=== PATIENT | male | born 1955 | race Caucasian/White ===

== ENCOUNTER → 2019-05-18 | Outpatient (CLI) | payer BC ==
--- NOTE | 2019-05-18 11:44 | REP ---
Chest x-ray: Two views. History: Fever and adult . Comparison study: No comparison study . Findings: The lungs are well inflated and free of infiltrate. The pleural angles are sharp. The heart size is normal. Pulmonary vasculature is not increased. No significant bony abnormality is seen. Impression: Negative chest x-ray. Electronically Signed by Jamison Boston MD 05/18/2019 11:36 A
== END ==
LOC: M LRY 10:19
PROVIDERS: ATTEND Physician Assistant
DX: R50.9 Fever, unspecified (principal); R05 Cough

== ENCOUNTER → 2020-02-18 | Outpatient (CLI) | payer BC | LOC: M LABCAHC 12:45 | PROVIDERS: ATTEND Pediatrics | DX: Z11.59 Encounter for screening for other viral diseases (principal) ==

== ENCOUNTER → 2020-05-25 | Outpatient (CLI) | payer BC ==
--- NOTE | 2020-05-25 09:36 | REP ---
INDICATION: ESSENTIAL HYPERTENSION, HYPERLIPIDEMIA. COMPARISON: None. Abdomen/pelvis CT without IV contrast dated 01/07/2011 TECHNIQUE: Multiple real-time ultrasonographic and Doppler and color Doppler images of the abdominal aorta. FINDINGS: Abdominal aorta diameters: Proximal a diaphragm: 2.6 cm AP. Transverse obscured. Renal artery level: Obscured. Mid aorta: 2.3 cm AP, 1.8 cm transverse. Distal aorta: 1.3 cm AP, 1.9 cm transverse Right Common iliac artery: 1.3 cm AP, 1.3 cm transverse Left common iliac artery: 1.2 cm AP, 1.1 cm transverse. IMPRESSION: There is no evidence of abdominal aortic aneurysm by ultrasound. Portions of the aorta are obscured and not visualized today. There was no abdominal aortic aneurysm on the comparison abdomen/pelvis CT. <Electronically signed by Luís Greer > 05/25/20 [id number]
--- NOTE | 2020-05-25 10:33 | DEXAMM ---
INDICATION: M85.80 [facility] DISRD OF BONE DENSITY AND STRUCTURE. COMPARISON: None. TECHNIQUE: Bone density was measured using dual-energy x-ray absorptionmetry (DEXA). FINDINGS: AP SPINE L1-L4 BMD 1.297 g/cm2 Young Adult T-Score 0.8 Age Matched Z-Score 0.9. LT FEMUR, TOTAL BMD 0.875 g/cm2 Young Adult T-Score -1.1 Age Matched Z-Score -1.0. LT NECK BMD 0.925 g/cm2 Young Adult T-Score -0.8 Age Matched Z-Score 0.0. RT FEMUR, TOTAL BMD 0.885 g/cm2 Young Adult T-Score -1.0 Age Matched Z-Score -0.9. RT NECK BMD 1.004 g/cm2 Young Adult T-Score -0.2 Age Matched Z-Score 0.6. IMPRESSION: There is normal bone density of the spine. There is low bone density of the left hip. There is low bone density of the right hip. FOLLOW-UP: Recommendation for the next bone density exam: 2 years. <Electronically signed by Raheem Boston > 05/25/20 [id number]
== END ==
LOC: M WHC 07:54
PROVIDERS: ATTEND Family Medicine
DX: E78.5 Hyperlipidemia, unspecified (principal); I10 Essential (primary) hypertension